=== PATIENT | female | born 2000 | race Caucasian/White ===

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

== ENCOUNTER 2020-05-01 14:41 | Inpatient (IN) ==
[2020-05-01 15:31] LABS: ABS Eosinophils 0.1 10^3/ul (0-0.6); ABS Lymphocytes 2.3 10^3/ul (1.0-4.8); ABS Monocytes 0.4 10^3/ul (0-0.8); Eosinophil % 0.7 %; Hematocrit 48 % (35-47); Hemoglobin 16.4 g/dL (12.0-16.0); Lymphocyte % 25.8 %; Mean Corpuscular HGB Conc 35 g/dL (31-36); Mean Corpuscular Hemoglobin 33 pg (27-31); Mean Corpuscular Volume 95 fL (80-97); Mean Platelet Volume 8.2 fL (7.4-10.4); Nucleated Red Blood Cells % 0.1; Platelet Count 266 10^3/uL (150-450); Red Blood Count 5.03 10^6 /uL (3.70-4.87); Red Cell Distribution Width 13 % (10-15); White Blood Count 8.8 10^3/uL (3.5-10.8)
[2020-05-01 16:08] LABS: ALT 14 U/L (7-52); AST 16 U/L (13-39); Acetaminophen < 15 mcg/mL; Albumin 5.1 g/dL (3.2-5.2); Albumin/Globulin Ratio 1.4 (1-3); Alcohol, S < 10 mg/dL (<10); Alkaline Phosphatase 84 U/L (34-104); Anion Gap 8 mmol/L (2-11); BUN/Creatinine Ratio 14.1 (8-20); Blood Urea Nitrogen 13 mg/dL (6-24); CO2 Carbon Dioxide 27 mmol/L (22-32); Calcium 9.9 mg/dL (8.6-10.3); Chloride 102 mmol/L (101-111); EGFR African American 95.2 (>60); EGFR Non-African American 78.6 (>60); Globulin 3.7 g/dL (2-4); Glucose 98 mg/dL (70-100); Potassium 3.9 mmol/L (3.5-5.0); Salicylate < 2.50 mg/dL (<30); Sodium 137 mmol/L (135-145); Total Protein 8.8 g/dL (6.4-8.9)
[2020-05-01 16:15] LABS: HCG Pregnancy < 0.60 mIU/mL
[2020-05-01 16:23] LABS: TSH Ultra Thyroid Stim Horm 1.17 mcIU/mL (0.34-5.60)
[2020-05-01] MEDS ORDERED: Al Hydrox/Mg Hydrox/Simet LIQ 30 ML UDC PO PRN (23:37)
[2020-05-02] MEDS ORDERED: Azithromyxin PAK 250 mg TA(NF) PO SCH (11:00)
[2020-05-02] MEDS: Vitamin THERAPEUTIC TAB PO SCH (11:30)
[2020-05-02] MEDS ORDERED: Albuterol HFA INHALER 8 gm MDI INH PRN (11:46)
[2020-05-02] MEDS ORDERED: CMCS:Minocycline 50 mg CAP (NF) PO SCH (12:00)
[2020-05-02] MEDS ORDERED: Ondansetron ODT 4 mg TAB 4 MG TAB SL PRN (15:14)
[2020-05-02] MEDS: Fluticasone NASAL SPRAY 50MCG 16 gm SPRAY BTL BOTH NARES SCH (21:02)
[2020-05-03 08:17] LABS: HDL Cholesterol 70.8 mg/dL
[2020-05-03] MEDS: Vitamin THERAPEUTIC TAB PO SCH (09:39)
[2020-05-03] MEDS: Fluticasone NASAL SPRAY 50MCG 16 gm SPRAY BTL BOTH NARES SCH (21:23)
[2020-05-04] MEDS: Vitamin THERAPEUTIC TAB PO SCH ×2 (09:44→09:47)
[2020-05-04] MEDS: Fluticasone NASAL SPRAY 50MCG 16 gm SPRAY BTL BOTH NARES SCH (21:28)
[2020-05-05] MEDS: Vitamin THERAPEUTIC TAB PO SCH (08:59)
[2020-05-05] MEDS: Fluticasone NASAL SPRAY 50MCG 16 gm SPRAY BTL BOTH NARES SCH (20:56)
[2020-05-06] MEDS: Vitamin THERAPEUTIC TAB PO SCH ×2 (08:46→08:48)
[2020-05-06] MEDS ORDERED: Influenza VAC *QUAD* 2020-21* 0.5 ML SYRINGE IM ONE (16:12)
[2020-05-06] MEDS: Fluticasone NASAL SPRAY 50MCG 16 gm SPRAY BTL BOTH NARES SCH (20:05)
[2020-05-07] MEDS: Vitamin THERAPEUTIC TAB PO SCH (08:46)
[2020-05-07] MEDS: Fluticasone NASAL SPRAY 50MCG 16 gm SPRAY BTL BOTH NARES SCH (21:31)
[2020-05-08] MEDS: Vitamin THERAPEUTIC TAB PO SCH (08:01)
[2020-05-08] MEDS: Fluticasone NASAL SPRAY 50MCG 16 gm SPRAY BTL BOTH NARES SCH (21:01)
[2020-05-09] MEDS: Vitamin THERAPEUTIC TAB PO SCH (08:43)
[2020-05-09] MEDS: Fluticasone NASAL SPRAY 50MCG 16 gm SPRAY BTL BOTH NARES SCH (21:35)
[2020-05-10] MEDS: Vitamin THERAPEUTIC TAB PO SCH (08:18)
[2020-05-10 10:38] VITALS: BP 97/64
== END 2020-05-10 18:00 | disposition home or self-care (01) | DRG 754 ==
LOC: ED 14:41 → BSU 23:27
PROVIDERS: ADMIT Psychiatry & Neurology Psychiatry; ATTEND Psychiatry & Neurology Psychiatry